=== PATIENT | male | born 1990 | race Caucasian/White ===

== ENCOUNTER 2016-04-06 16:14 | Emergency (ER) | payer SELFPAY ==
--- NOTE | 2016-04-06 17:40 | DIAGNOSTIC IMAGING REPORT ---
PROCEDURE: CT ABD/PELVIS WITH CONTRAST CLINICAL INDICATION: Right lower quadrant pain x 2 days, initial encounter. TECHNIQUE: 125 ml of Isovue 300 were injected intravenously and axial images were obtained of the entire abdomen and pelvis with sagittal and coronal reformations. COMPARISON: None. FINDINGS: ABDOMEN: Lung base are clear. Heart size is normal. Liver, gallbladder, pancreas, spleen, adrenal glands and right kidney are normal. Left extrarenal pelvis. Normal abdominal aorta. Stool throughout the large bowel. PELVIS: Normal appendix. There is no pelvic mass, inflammatory changes or free fluid. No suspicious osseous lesions. IMPRESSION: 1. Normal appendix 2. Severe obstipation 3. Results discussed with Dr. Rollins All CT scans at this facility use dose modulation, iterative reconstruction, and/or weight-based dosing when appropriate to reduce radiation dose to as low as reasonably achievable.
--- NOTE | 2016-04-06 17:44 | ED ORDER SUMMARY ---
..... Patient: FABIANA GORDILLO OrderSheet [facility] VisitID: [id number] [address] [place] [address] 25y, M Registration Date/Time: 04/06/2016 ORDER SHEET Weight: 74.8 kg (stated) Allergies: Vicodin GENERAL ORDERS: CT Abd/Pel w Cont (No) (n/a can run without getting labs back) Urgent (16:39 04/06/2016 Sammy Garrett) (Ack 17:16 NHouse ER Tech1) (17:25 MCampbell) CBC w Diff Urgent (16:39 04/06/2016 Sammy Garrett) (16:40 KWilliams R.N.) CMP Urgent (16:39 04/06/2016 Sammy Garrett) (16:40 KWilliams R.N.) UA-Culture if indicated Urgent (16:39 04/06/2016 Sammy Garrett) (Ack 16:43 ALawrence ER Tech1) (17:43 KWilliams R.N.) PT with INR Urgent (16:39 04/06/2016 Sammy Garrett) (16:40 KWilliams R.N.) PTT Urgent (16:39 04/06/2016 Sammy Garrett) (16:40 KWilliams R.N.) Lipase Urgent (16:39 04/06/2016 Sammy Garrett) (16:40 KWilliams R.N.) Pulse oximeter (16:39 04/06/2016 Sammy Garrett) (16:40 KWilliams R.N.) NPO (16:39 04/06/2016 Sammy Garrett) (16:40 KWilliams R.N.) MEDICATION ORDERS: IV FLUIDS: IV NS : initial bolus 1000 mL (1000 mL/hr), then none - for X1 (NOW) (16:39 04/06/2016 Sammy Garrett) (16:53 KWilliams R.N.) Zofran IV 4 mg (NOW) (16:48 04/06/2016 Carlos R.NPrashanth verbal order read back to Sammy Garrett) (16:54 KWilliams R.N.) Morphine IV 2 mg (MAY REPEAT X1) (16:49 04/06/2016 Carlos Beltran verbal order read back to Sammy Garrett) (16:54 Carlos Beltran) ORDER SHEET NOTES: [Electronically signed by Markos Mendoza R.N. (18:21 04/06/2016)] [Electronically signed by Segun Rollins Dr. (18:07 04/11/2016)] [Electronically locked/signed by Markos Mendoza R.N. (18:21 04/06/2016)]
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
--- NOTE | 2016-04-06 17:44 | ED ORDER SUMMARY ---
..... Patient: FABIANA GORDILLO OrderSheet [facility] VisitID: [id number] [address] [place] [address] 25y, M Registration Date/Time: 04/06/2016 ORDER SHEET Weight: 74.8 kg (stated) Allergies: Vicodin GENERAL ORDERS: CT Abd/Pel w Cont (No) (n/a can run without getting labs back) Urgent (16:39 04/06/2016 Sammy Garrett) (Ack 17:16 NHouse ER Tech1) (17:25 MCampbell) CBC w Diff Urgent (16:39 04/06/2016 Sammy Garrett) (16:40 KWilliams R.N.) CMP Urgent (16:39 04/06/2016 Sammy Garrett) (16:40 KWilliams R.N.) UA-Culture if indicated Urgent (16:39 04/06/2016 Sammy Garrett) (Ack 16:43 ALawrence ER Tech1) (17:43 KWilliams R.N.) PT with INR Urgent (16:39 04/06/2016 Sammy Garrett) (16:40 KWilliams R.N.) PTT Urgent (16:39 04/06/2016 Sammy Garrett) (16:40 KWilliams R.N.) Lipase Urgent (16:39 04/06/2016 Sammy Garrett) (16:40 KWilliams R.N.) Pulse oximeter (16:39 04/06/2016 Sammy Garrett) (16:40 KWilliams R.N.) NPO (16:39 04/06/2016 Sammy Garrett) (16:40 KWilliams R.N.) MEDICATION ORDERS: IV FLUIDS: IV NS : initial bolus 1000 mL (1000 mL/hr), then none - for X1 (NOW) (16:39 04/06/2016 Sammy Garrett) (16:53 KWilliams R.N.) Zofran IV 4 mg (NOW) (16:48 04/06/2016 Carlos R.NPrashanth verbal order read back to Sammy Garrett) (16:54 KWilliams R.N.) Morphine IV 2 mg (MAY REPEAT X1) (16:49 04/06/2016 Carlos Beltran verbal order read back to Sammy Garrett) (16:54 Carlos Beltran) ORDER SHEET NOTES: [Electronically signed by Markos Mendoza R.N. (18:21 04/06/2016)] [Electronically signed by Segun Rollins Dr. (18:07 04/11/2016)] [Electronically locked/signed by Markos Mendoza R.N. (18:21 04/06/2016)]
--- NOTE | 2016-04-06 17:44 | ED CLINICAL REPORT ---
Clinical Report - Physicians/Mid Levels [facility] [address] [place] [address] 04/06/2016 16:18 Patient: FABIANA GORDILLO Time Seen: 1630. Arrived- By private vehicle. Historian- patient. HISTORY OF PRESENT ILLNESS Chief Complaint: ABDOMINAL PAIN. At its maximum, severity described as severe. When seen in the E.D., severity described as severe. Modifying factors- worsened by movement. Relieved by rest. It is described as sharp and migrating. No radiation. This started yesterday and is still present and worsening. It was gradual in onset and has been constant but is not gone now. The patient has had nausea and moderate vomiting. The vomiting has occurred several times. No additional abdominal pain. (no testicular pain or penile discharge). Similar symptoms previously: None. Recent medical care: Not recently seen/assessed. REVIEW OF SYSTEMS No constipation, black stools, hematemesis, bloody stools or chest pain. No skin rash. All systems otherwise negative, except as recorded above. SOCIAL HISTORY Smoker- current status unknown. Alcohol use. History of occasional drug use: marijuana. No recent travel. Is a local resident. FAMILY HISTORY (family hx of ginny). ADDITIONAL NOTES The nursing notes have been reviewed. PHYSICAL EXAM Vital Signs: 04/06/2016 16:30 HR: 77. RR: 16. O2 saturation: 99%. Temp: 97.9 F. Blood pressure normal. Oxygen saturation normal. Appearance: Alert. Oriented X3. No acute distress. Patient in mild distress. Eyes: Pupils equal, round and reactive to light. Eyes normal inspection. ENT: Ears normal. Nose normal. Pharynx normal. Neck: Normal inspection. Neck supple. CVS: Normal heart rate and rhythm. Heart sounds normal. Pulses normal. Respiratory: No respiratory distress. Breath sounds normal. Chest nontender. Abdomen: Soft. Moderate tenderness in the right lower quadrant. No guarding, rebound tenderness or Naik's sign present. Bowel sounds normal. No organomegaly. No mass. Back: Normal inspection. Skin: Skin warm and dry. Normal skin color. No rash. Normal skin turgor. Extremities: Extremities exhibit normal ROM. No lower extremity edema. LABS, X-RAYS, AND EKG Abdominal CT: PROCEDURE: CT ABD/PELVIS WITH CONTRAST CLINICAL INDICATION: Right lower quadrant pain x 2 days, initial encounter. TECHNIQUE: 125 ml of Isovue 300 were injected intravenously and axial images were obtained of the entire abdomen and pelvis with sagittal and coronal reformations. COMPARISON: None. FINDINGS: ABDOMEN: Lung base are clear. Heart size is normal. Liver, gallbladder, pancreas, spleen, adrenal glands and right kidney are normal. Left extrarenal pelvis. Normal abdominal aorta. Stool throughout the large bowel. PELVIS: Normal appendix. There is no pelvic mass, inflammatory changes or free fluid. No suspicious osseous lesions. IMPRESSION: 1. Normal appendix 2. Severe obstipation. Study type: abdomen and pelvis. Abdominal CT performed with IV contrast. The study was independently viewed by me and interpreted by the radiologist. The study was discussed with the radiologist (via pacs and phone). Laboratory Tests: CBC w Diff: (CAPRICE: 04/06/2016 16:30) ( [facility] 04/06/2016 16:50) Final results Test Result Flag Units (Reference) WHITE BLOOD COUNT 5.4 K/uL (4.5-11.5) RED BLOOD COUNT 4.78 M/uL (4.50-5.90) HEMOGLOBIN 14.6 gm/dL (13.5-17.5) HEMATOCRIT 43.0 % (41.0-53.0) MEAN CELL VOLUME 90 fL (80-100) MEAN CORPUSCULAR HGB 31 pg (26-34) MEAN CORPUSCULAR HGB CONC 34 g/dL (31-37) RED CELL DISTRIBUTION WIDTH 12.5 % (11.6-14.8) PLATELET COUNT 162 K/uL (150-400) NEUTROPHIL % 46.1 L % (50-75) LYMPH % 41.5 H % (25-40) MONO % 9.7 % (3-14) EOSINOPHIL % 2.0 % (0-4) BASOPHIL % 0.7 % (0-2) PT with INR: (CAPRICE: 04/06/2016 16:30) ( [facility] 04/06/2016 16:56) Final results Test Result Flag Units (Reference) INR 0.9 (0.8-1.2) Low Intensity Therapy: INR 1.5-2.0 PT range 18.5-23.1Mod.Intensity Therapy: INR 2.0-3.0 PT range 23.1-31.5High Intensity Therapy: INR 2.5-3.5 PT range 27.4-35.5High Intensity Therapy 2: INR 3.0-4.0 PT range 31.5-39.3 APTT 30 SECONDS (24-34) CMP: (CAPRICE: 04/06/2016 16:30) ( MsgRcvd 04/06/2016 16:58) Final results Test Result Flag Units (Reference) GLUCOSE 106 mg/dL (70-110) BUN 13 mg/dL (7-18) CREATININE 0.9 mg/dL (0.6-1.3) Estimated GFR >60 mL/min Estimated GFR- >60 mL/min Note: Persistent reduction over 3 months in eGFR<60 mL/min/1.73 m2 defines CKD. Patients with eGFR values>=60 mL/min/1.73 m2 may also have CKD if evidence ofpersistent proteinuria. Additional information may be foundat www.[email or web address].org. SODIUM 140 mmol/L (136-145) POTASSIUM 3.7 mmol/L (3.5-5.1) CHLORIDE 103 mmol/L (98-107) CARBON DIOXIDE 30 mmol/L (21-32) CALCIUM 8.1 L mg/dL (8.5-10.1) TOTAL PROTEIN 6.8 g/dL (6.4-8.2) ALBUMIN 3.6 g/dL (3.3-5.0) BILIRUBIN, TOTAL 0.2 mg/dL (0.0-1.0) ALKALINE PHOSPHATASE 68 U/L (46-116) AST (SGOT) 28 U/L (15-37) ALT (SGPT) 38 U/L (12-78) LIPASE 82 U/L (73-393) . PROGRESS AND PROCEDURES Course of Care: The patient is a pleasant 25-year-old male with no pertinent past medical history presenting for evaluation of right lower quadrant abdominal pain. The patient's signs and symptoms are consistent with likely acute appendicitis. Patient however does not appear toxic and is in no acute distress. I feel that CT scan and laboratory studies will beordered for evaluation of other etiologies for the right lower quadrant abdominal pain. Patient reports no concern for testicular or genital discomfort. Patient is agreeable to the workup and plan. Patient's laboratory studies are unremarkable. White blood cell count is 5.4. CT scan of the abdomen and pelvis does not show any signs of acute intra-abdominal pathology except for constipation. Patient is reevaluated and found to have improvement with his symptoms. I discussion with patient in regards to his work. Emergency department. I discussed the patient workup, diagnosis, home care, follow-up, and return precautions. All questions answered. The patient expressed understanding of these instructions and was agreeable to them. In particular, had discussed the patient acute appendicitis precautions and reasons to return to the emergency department. Do not feel patient is being admitted to the hospital or require further emergency department workup/evaluation. On repeat examination, patient's abdominal exam is benign. Disposition: Discharged. Condition: good. CLINICAL IMPRESSION Acute right lower quadrant abdominal pain. Vomiting with nausea. 04/06/2016 17:29 BP: 101/67. HR: 69. RR: 15. O2 saturation: 96%. Blood pressure normal. Oxygen saturation normal. Constipation (acute). INSTRUCTIONS Warnings: GENERAL WARNINGS: Return or contact your physician immediately if your condition worsens or changes unexpectedly, if not improving as expected, or if other problems arise. SPECIFICALLY, return if you develop pain, fever, vomiting, the inability to keep fluids down, blood in vomitus, blood in diarrhea, fainting or lightheadedness. Your Current Medications: CONTINUE TAKING THE FOLLOWING MEDICATIONS: None*. OTC Medications: Senokot 8.6 mg: Take 2 orally every day as needed for constipation. Dispense thirty (30). No refills. Magnesium Citrate (10-oz bottle) (available over the counter): take 1 bottle to achieve bowel movement. Repeat after 4 hours if needed. (Disp 2 bottles) Dulcolax (available over the counter): take 1 tablet orally twice daily as needed for constipation. Substitution is permissible. (Disp 60 caps) Follow-up: Return to the emergency department as needed. Follow up with your doctor in three days. Reason for referral: recheck today's concerns. Summary of care provided to patient via paper. Screening today revealed the patient's blood pressure to be in the normal range. The patient should follow up with a primary care provider for blood pressure management. Understanding of the discharge instructions verbalized by patient. (Electronically signed by Segun Rollins Dr. 04/11/2016 18:07)
--- NOTE | 2016-04-11 18:07 | ED MED RECONCILIATION SUMMARY ---
Patient: FABIANA GORDILLO Medication Reconciliation Report [facility] VisitID: [id number] [address] [place] [address] 25y, M Registration Date/Time: 04/06/2016 Weight: 74.8 kg Height/Length: 72 in. BMI: 22.4 ALLERGIES: Vicodin The patient's Home Medications are listed below: NONE. The source(s) of the original Home Medication information: patient The following Medications were given to the patient in the Emergency Department: IV NS IV Fluids bolus 0, then 999 mL/hr, administered: 04/06/2016 4:43:00 PM Zofran [IVP] IVP 4 mg, administered: 04/06/2016 4:49:00 PM Morphine [IVP] IVP 2 mg, administered: 04/06/2016 4:49:00 PM The following Medications were prescribed to the patient: Senokot 8.6 mg: Take 2 orally every day as needed for constipation. Dispense thirty (30). No refills. -- Segun Rollins Dr. Magnesium Citrate (10-oz bottle) (available over the counter): take 1 bottle to achieve bowel movement. Repeat after 4 hours if needed.(Disp 2 bottles) -- Segun Rollins Dr. Dulcolax (available over the counter): take 1 tablet orally twice daily as needed for constipation. Substitution is permissible.(Disp 60 caps) -- Segun Rollins Dr.
--- NOTE | 2016-04-11 18:07 | ED DISCHARGE INSTRUCTIONS ---
Patient: FABIANA GORDILLO General Instructions [facility] VisitID: [id number] [place] [address] 25y, M Registration Date/Time: 04/06/2016 Acute right lower quadrant abdominal pain. Vomiting with nausea. 04/06/2016 17:29 BP: 101/67. HR: 69. RR: 15. O2 saturation: 96%. Blood pressure normal. Oxygen saturation normal. Constipation (acute). INSTRUCTIONS Warnings: GENERAL WARNINGS: Return or contact your physician immediately if your condition worsens or changes unexpectedly, if not improving as expected, or if other problems arise. SPECIFICALLY, return if you develop pain, fever, vomiting, the inability to keep fluids down, blood in vomitus, blood in diarrhea, fainting or lightheadedness. Your Current Medications: CONTINUE TAKING THE FOLLOWING MEDICATIONS: None*. OTC Medications: Senokot 8.6 mg: Take 2 orally every day as needed for constipation. Dispense thirty (30). No refills. Magnesium Citrate (10-oz bottle) (available over the counter): take 1 bottle to achieve bowel movement. Repeat after 4 hours if needed. (Disp 2 bottles) Dulcolax (available over the counter): take 1 tablet orally twice daily as needed for constipation. Substitution is permissible. (Disp 60 caps) Follow-up: Return to the emergency department as needed. Follow up with your doctor in three days. Reason for referral: recheck today's concerns. Summary of care provided to patient via paper. Screening today revealed the patient's blood pressure to be in the normal range. The patient should follow up with a primary care provider for blood pressure management. Understanding of the discharge instructions verbalized by patient. ADDITIONAL INFORMATION Abdominal Pain,Uncertain Cause [Male] Based on your visit today, the exact cause of your abdominalpain is not clear. Your exam and tests do not indicate a dangerous cause at this time. However, the signs of a serious problem may take more time to appear. Although your evaluation was reassuring today, sometimes early in the course of many conditions, exam and lab tests can appear normal. Therefore, it is important for you to watch for any new symptoms or worsening of your condition. Causes It may not be obvious what caused your symptoms. Pay attention to things that do seem to make your symptoms worse or better and discuss this with your doctor when you follow up. Diagnosis The evaluation of abdominal pain in the emergency department may onlyrequire an exam by the doctor or it may include blood, urine or imaging studies, depending on many factors. Sometimes exams and tests can identify a cause but in many cases, a clear cause is not found. Further testing at follow up visits may help to suggest a clear diagnosis. Home Care Rest as much as possible until your next exam. Try to avoid any medications (unless otherwise directed by your doctor), foods, activities, or other factors that you may have contributed to your symptoms. Try to eat foods that you know that you have tolerated well in the past. Certain diets may be recommended for some conditions that cause abdominal pain. However, since the cause of your symptoms may not be clear, discuss your diet more with your primary care provider or specialist for further recommendations. Eating several small meals per day as opposed to 2 or 3 larger meals may help. Monitor closely for anything that may make your symptoms worse or better. Pay close attention to symptoms below that may indicate worsening of your condition. Follow Up and Precautions See your doctoras instructed or sooneror if your symptoms are not improving.In some cases, you may need more testing. When to Seek Medical Attention Contact your doctor or see medical attention ifany of the following occur: Pain is becoming worse You are unable to take your medications due to excessive vomiting Swelling of the abdomen Fever of 100.4F (38C) or higher, or as directed by your health care provider Blood in vomit or bowel movements (dark red or black color) Jaundice (yellow color of eyes and skin) New onset of weakness, dizziness or fainting New onset of chest, arm, back, neck or jaw pain Abdominal Pain, Possible Appendicitis, Repeat Exam, Male Based on your visit today, the exact cause of your abdominal (stomach) pain is not certain. However, you do have some of the early signs of appendicitis. Early in an appendix infection the symptoms can be similar to a simple "stomach ache" or "stomach flu". Therefore, the diagnosis can be hard to make.Since an appendix infection is a serious condition, it is important to know if this is the cause of your symptoms. WAITING for more time to pass and repeating the exam is the best way to find out whether you have appendicitis. Within the next 12-24 hours the cause of your stomach pain should become clear. It is important for you to watch for any new symptoms or worsening of your condition.(See below). Home Care: Rest until your next exam. No strenuous activities. Eat a diet low in fiber (called a low-residue diet). Foods allowed include refined breads, white rice, fruit and vegetable juices without pulp, tender meats. These foods will pass more easily through the intestine. Avoid whole-grain foods, whole fruits and vegetables, meats, seeds and nuts, fried or fatty foods, dairy, alcohol and spicy foods until your symptoms go away. In some cases, you may be asked not to eat or drink anything until you are re-examined. Return for another exam exactly as directed. Follow Up with your doctor or this facility as directed. [NOTE: If you had an X-ray, CT scan, ultrasound, or EKG (cardiogram), it will be reviewed by a specialist. You will be notified of any new findings that may affect your care.] Return Promptly before your next appointment or contact your doctor if any of the following occur: Pain gets worse or moves to the right lower abdomen New or worsening vomiting or diarrhea Swelling of the abdomen Unable to pass stool for more than three days New fever over 100.4 F (38.0 C), or rising fever Blood in vomit or bowel movements (dark red or black color) Weakness, dizziness or fainting Vomiting [6Yr-Adult] Vomiting is a common symptom that may be due to different causes. These include gastroenteritis ("stomach flu"), food poisoning and gastritis. There are other more serious causes of vomiting which may be hard to diagnose early in the illness. Therefore, it is important to watch for the warning signs listed below. The main danger from repeated vomiting is dehydration. This is due to excess loss of water and minerals from the body. When this occurs, body fluids must be replaced. Home Care: If symptoms are severe, rest at home for the next 24 hours. You may use acetaminophen (Tylenol) or ibuprofen (Motrin, Advil) to control fever, unless another medicine was prescribed. [NOTE : If you have chronic liver or kidney disease or ever had a stomach ulcer or GI bleeding, talk with your doctor before using these medicines.] (Aspirin should never be used in anyone under 18 years of age who is ill with a fever. It may cause severe liver damage.) Avoid tobacco and alcohol use, which may worsen your symptoms. If medicines for vomiting were prescribed, take as directed. Once vomiting stops, then follow these guidelines: During The First 12-24 Hours follow the diet below: FRUIT JUICES: Apple, grape juice, clear fruit drinks, and electrolyte replacement drinks. BEVERAGES: Soft drinks without caffeine; mineral water (plain or flavored), decaffeinated tea and coffee. SOUPS: Clear broth, consomm and bouillon DESSERTS: Plain gelatin, popsicles and fruit juice bars. As you feel better, you may add 6-8 ounces of yogurt per day. During The Next 24 Hours you may add the following to the above: Hot cereal, plain toast, bread, rolls, crackers Plain noodles, rice, mashed potatoes, chicken noodle or rice soup Unsweetened canned fruit (avoid pineapple), bananas Limit caffeine and chocolate. No spices or seasonings except salt. During The Next 24 Hours Gradually resume a normal diet, as you feel better and your symptoms lessen. Follow Up with your doctor as advised if you are not improving over the next 2-3 days. Get Prompt Medical Attention if any of the following occur: Constant right-sided lower abdominal pain or increasing general abdominal pain Continued vomiting (unable to keep liquids down) for 24 hours Frequent diarrhea (more than 5 times a day); blood (red or black color) or mucus in diarrhea Reduced urine output or extreme thirst Weakness, dizziness or fainting Unusually drowsy or confused Fever of 100.4F (38C) oral or higher, not better with fever medication Yellow color of the eyes or skin Constipation (Adult) Constipation is bowel movements that are less frequent than usual. Stools often become very hard and difficult to pass. This may lead to abdominal pain and bloating. It may also cause painful bowel movements. Constipation may be due to a diet thats low in fiber. Some medications, especially pain medications, can also cause it. Constipation may be treated with enemas, suppositories, laxatives or stool softeners. Your doctor will advise you which will work best for you. Follow the advice below to help avoid this problem in the future. Home Care Medication: Take any medicines as directed. Some laxatives are safe only for occasional use. Others can be taken on a regular basis. Talk to your doctor or pharmacist if you have questions. General Care: Prescription pain medications can cause constipation. If you are prescribed pain medications, ask the doctor whether you should also take a stool softener. A diet high in fiber with plenty of fluids helps to maintain regular, soft bowel movements. The following foods are good sources of dietary fiber: Cereals and breads: Whole grain cereal with bran, oatmeal, rolled oats, whole grain breads Fruits: All fruits (fresh and dried), raisins, prunes, apricots, berries, figs Vegetables: Any fresh vegetables, especially peas, broccoli, brussels sprouts, winter squash, green beans, cauliflower, thomas beans, carrots Other: Popcorn, brown rice Drink plenty of water when you increase the amount of fiber you eat. Follow Up with your doctor or return to this facility if symptoms do not improve in the next few days. You may require further tests or a referral to a specialist. Get Prompt Medical Attention if any of the following occur: Fever over 100.4F (38C) Failure to resume normal bowel movements Increasing abdominal or back pain Nausea or vomiting Abdominal swelling Blood in the stool Weakness, dizziness or fainting Unexpected vaginal bleeding You have been given the following additional information: Abdominal Pain, Unknown Cause, (Male) Abdominal Pain, Possible Appendicitis [Male] Vomiting (6Y-Adult) Constipation (Adult) (Electronically signed by Segun Rollins Dr. 04/11/2016 18:07)
--- NOTE | 2016-04-11 18:07 | ED MED RECONCILIATION SUMMARY ---
Patient: FABIANA GORDILLO Medication Reconciliation Report [facility] VisitID: [id number] [address] [place] [address] 25y, M Registration Date/Time: 04/06/2016 Weight: 74.8 kg Height/Length: 72 in. BMI: 22.4 ALLERGIES: Vicodin The patient's Home Medications are listed below: NONE. The source(s) of the original Home Medication information: patient The following Medications were given to the patient in the Emergency Department: IV NS IV Fluids bolus 0, then 999 mL/hr, administered: 04/06/2016 4:43:00 PM Zofran [IVP] IVP 4 mg, administered: 04/06/2016 4:49:00 PM Morphine [IVP] IVP 2 mg, administered: 04/06/2016 4:49:00 PM The following Medications were prescribed to the patient: Senokot 8.6 mg: Take 2 orally every day as needed for constipation. Dispense thirty (30). No refills. -- Segun Rollins Dr. Magnesium Citrate (10-oz bottle) (available over the counter): take 1 bottle to achieve bowel movement. Repeat after 4 hours if needed.(Disp 2 bottles) -- Segun Rollins Dr. Dulcolax (available over the counter): take 1 tablet orally twice daily as needed for constipation. Substitution is permissible.(Disp 60 caps) -- Segun Rollins Dr.
--- NOTE | 2016-04-11 18:07 | ED MAR SUMMARY ---
..... Medication Administration Record [facility] [address] [place] [address] Patient: FABIANA GORIDLLO Visit ID: [id number] 25y, M Weight: 74.8 kg Height/Length: 72 in BMI: 22.4 ALLERGIES: Vicodin Start 16:43 04/06/2016 Omega Workman R.N., Stop 17:53 04/06/2016 Markos Mendoza R.N. Medication Administered: IV NS (SALINE), Dose: IV Fluids over 1 hour(s), Rate: 999 mL/hr, Dispensed: 1000 mL bag, Site: #1 left forearm. Medication Ordered: IV NS : initial bolus 1000 mL (1000 mL/hr), then none - for X1 (NOW). Given 16:49 04/06/2016 Omega Workman R.N. Medication Administered: ZOFRAN [IVP] (ONDANSETRON HCL), Dose: 4 mg IVP over 2 minute(s), Site: #1 left forearm. Medication Ordered: Zofran IV 4 mg (NOW). Given 16:49 04/06/2016 Omega Workman R.N. Medication Administered: MORPHINE [IVP], Dose: 2 mg IVP over 2 minute(s), Site: #1 left forearm. Medication Ordered: Morphine IV 2 mg (MAY REPEAT X1).
--- NOTE | 2016-04-11 18:07 | ED MAR SUMMARY ---
..... Medication Administration Record [facility] [address] [place] [address] Patient: FABIANA GORDILLO Visit ID: [id number] 25y, M Weight: 74.8 kg Height/Length: 72 in BMI: 22.4 ALLERGIES: Vicodin Start 16:43 04/06/2016 Omega Workman R.N., Stop 17:53 04/06/2016 Markos Mendoza R.N. Medication Administered: IV NS (SALINE), Dose: IV Fluids over 1 hour(s), Rate: 999 mL/hr, Dispensed: 1000 mL bag, Site: #1 left forearm. Medication Ordered: IV NS : initial bolus 1000 mL (1000 mL/hr), then none - for X1 (NOW). Given 16:49 04/06/2016 Omega Workman R.N. Medication Administered: ZOFRAN [IVP] (ONDANSETRON HCL), Dose: 4 mg IVP over 2 minute(s), Site: #1 left forearm. Medication Ordered: Zofran IV 4 mg (NOW). Given 16:49 04/06/2016 Omega Workman R.N. Medication Administered: MORPHINE [IVP], Dose: 2 mg IVP over 2 minute(s), Site: #1 left forearm. Medication Ordered: Morphine IV 2 mg (MAY REPEAT X1).
== END 2016-04-06 18:17 | disposition home or self-care (01) ==
LOC: ED SRH 16:14
DX: R10.31 Right lower quadrant pain (principal); R11.2 Nausea with vomiting, unspecified; K59.00 Constipation, unspecified; Z72.0 Tobacco use
CPT/HCPCS: 90004; 90074; 90100; 92235; 94001; 94060; 95059